=== PATIENT | male | born 1950 | race African-American/Black ===

== ENCOUNTER 2024-02-14 13:33 | Emergency (ER) | payer MEDICARE, SELFPAY ==
[2024-02-14] VITALS (12 sets, daily range): BP systolic 117–139; BP diastolic 70–92; PULSE 91–103; RESP 14–26; TEMP 36.6; O2SAT 94–96; BMI 22.0
--- NOTE | 2024-02-14 13:56 | DI.RAD.S_ITS ---
PROCEDURE: XR CHEST 1V INDICATIONS: Shortness of breath TECHNIQUE: One view of the chest was acquired. COMPARISON: None. FINDINGS: Surgical changes and devices: None. Lungs and pleura: Lungs right basilar atelectasis and/or hypoinflated. No pleural effusions or pneumothorax. Mediastinum: Mediastinal contours appear normal. Heart size is normal. Bones and chest wall: No suspicious bony lesions. Overlying soft tissues appear unremarkable. IMPRESSION: Right basilar atelectasis. If there is significant concern for an infectious process formal PA and lateral chest radiographs are recommended. Dictated by: Rehana Turner M.D. on 02/14/2024 at 13:50 Approved by: Rehana Turner M.D. on 02/14/2024 at 13:52
--- NOTE | 2024-02-14 13:57 | EKG_ITS ---
[id number] [address] Test Date: 2024-02-14 Pat Name: Bobby Marion Department: Room: Gender: Male Solutions Analyst: : 1950 Requested By: Order Number: [id number] Reading MD: Cruz Durbin Measurements Intervals Buckner Rate: 100 P: 40 DC: 168 QRS: 12 QRSD: 70 T: 39 QT: 362 QTc: 466 Interpretive Statements Normal sinus rhythm Nonspecific ST abnormality Electronically Signed On 02-16-2024 19:41:37 PST by Cruz Durbin
[2024-02-14 14:21] LABS: Add Manual Diff / Slide Review NO; Basophils Absolute Auto 0 /uL (0-100); Basophils Percent Auto 0.3 % (0-2); Eosinophils Absolute Auto 0 /uL (0-450); Eosinophils Percent Auto 0.1 % (2-4); Hematocrit 33.4 % (41-53); Hemoglobin 10.6 g/dL (13.5-17.5); Lymphocytes Absolute Auto 1400 /uL (1100-4500); Lymphocytes Percent Auto 9.5 % (25-40); Mean Corpuscular HGB Conc 31.8 % (30-36); Mean Corpuscular Hemoglobin 26.3 PG (26-34); Mean Corpuscular Volume 82.7 fL (80-100); Monocytes Absolute Auto 1400 /uL (0-900); Monocytes Percent Auto 9.7 % (3-14); Neutrophils Absolute Auto 11900 /uL (1500-7000); Neutrophils Percent Auto 80.4 % (50-75); Platelet Count 467 X10^3/uL (150-400); Red Blood Cell Count 4.04 X10^6/uL (4.5-5.9); Red Cell Distribution Width 16.3 % (11.6-14.8); White Blood Cell Count 14.8 X10^3/uL (4.5-11.0)
[2024-02-14 14:26] LABS: INR 1.5 (0.9-1.3); Prothrombin Time 16.5 SECONDS (9.4-12.5)
[2024-02-14 14:32] LABS: Alanine Aminotransferase 88 IU/L (<50); Albumin 3.6 g/dL (3.5-5.0); Albumin Globulin Ratio 0.9 (1.0-2.8); Alkaline Phosphatase 608 U/L (38-126); Aspartate Aminotransferase 141 IU/L (17-59); BUN Creatinine Ratio 24.4 (6-22); Bilirubin Total 1.5 mg/dL (0.2-1.3); Blood Urea Nitrogen 30 mg/dL (9-20); Calcium 9.6 mg/dL (8.4-10.2); Carbon Dioxide 24 mmol/L (22-32); Chloride 99 mmol/L (98-107); Estimated Glomerular Filt Rate > 60 mL/min (>60); Globulin 4.1 g/dL (1.7-4.1); Glucose 122 mg/dL (80-110); HEMOLYSIS < 15 (0-50); Lactate (Lactic Acid) 2.6 mmol/L (0.7-2.1); Lipase 227 U/L (23-300); Potassium 4.1 mmol/L (3.4-5.1); Sodium 133 mmol/L (137-145); Total Protein 7.7 g/dL (6.3-8.2)
[2024-02-14 14:44] LABS: NT-proBNP (BNP-Adult 18+) 171 pg/mL (<125); Troponin I < 0.012 ng/mL (0.01-0.034)
--- NOTE | 2024-02-14 14:44 | ED_ITS ---
HPI - Abdominal Pain General Chief Complaint: Abdominal Pain Stated Complaint: lower rt quad px, blood in stool Time Seen by Provider: 02/14/24 14:42 Source: patient and family Mode of arrival: Family Vehicle History of Present Illness HPI narrative: Patient is a 73-year-old male history of hypertension presenting today with variety of symptoms. He has been having some ongoing abdominal pain more in the right side. It has been ongoing for couple of months. It has not any worse. He did a home Hemoccult test which he says was positive for blood. He denies any bloody bowel movements or black stool. He says he has a decrease in appetite he is probably lost some weight. He also noticed significant shortness of breath with any sort of exertion. He has had increased sedentary with the abdominal pain. Related Data Previous Rx's Medication Instructions Recorded hydrocodone 5 mg-acetaminophen 325 1 tab PO Q6H PRN pain #15 tabs 02/14/24 mg tablet Patient History Social History Smoking Status: Never smoker Smoking Status: Never smoker Exam Initial Vital Signs Initial Vital Signs: Vital Signs Temperature 97.9 F 02/14/24 13:40 Pulse Rate 103 H 02/14/24 13:40 Respiratory Rate 14 02/14/24 13:40 Blood Pressure 129/72 02/14/24 13:40 Pulse Oximetry 95 02/14/24 13:40 Oxygen Delivery Method Room Air 02/14/24 13:40 GENERAL: Thin frail 73-year-old male and in [no acute] distress. HEENT: Head atraumatic,EOMI, pupils reactive, face symmetric, [moist] mucous membranes CARDIOVASCULAR: Regular rate and rhythm without murmurs, rubs or gallops. RESPIRATORY: Breath sounds equal bilaterally, no wheezes rales or rhonchi. ABDOMEN: Soft, mild tenderness right side no significant distention [RECTAL:] [Hemoccult-positive, no hemorrhoids, nontender] : No CVA tenderness EXTREMITIES: Normal range of motion, no clubbing or edema. Neurovascularly intact NEUROLOGICAL: Alert and oriented x4.Normal gait and speech. SKIN: Warm, dry, no laceration, no petechiae, no rashes or lesions. Course Orders Ordered: ED Orders 02/14/24 13:54 EKG-12 Lead Stat 02/14/24 13:56 XR chest 1V Stat Measure peak expiratory flow ONCE RT Consult Eval and Treat NOW 02/14/24 14:00 CEA [Carcinoembryonic Antigen] Stat Complete Blood Count AUTO DIFF Stat Comprehensive Metabolic Panel Stat Lactate (Lactic Acid) Stat Lipase Stat NT-proBNP (BNP-Adult 18+) Stat Prothrombin Time INR Stat Troponin I Stat 02/14/24 14:55 CT abdomen pelvis w con Stat CT angio chest PE protocol Stat 02/14/24 15:20 Blood Culture Stat 02/14/24 15:40 Urine Microscopic Stat 02/14/24 17:50 Alpha Fetoprotein Stat Discontinued Medications Hydrocodone Bitart/Acetaminophen (Hydrocodone/Acet 5/325 Prepack) 1 bottle MISC DIRECTED ONE Stop: 02/14/24 18:11 Last Admin: 02/14/24 18:14 Dose: 1 bottle Documented By: TANJA Ondansetron HCl (Ondansetron 4 Mg/2 Ml Inj) 4 mg IV NOW PRN PRN Reason: Nausea And Vomiting Ondansetron HCl (Ondansetron 4 Mg Odt) 4 mg PO NOW PRN PRN Reason: Nausea And Vomiting Vital Signs Vital signs: Vital Signs - 8 hr 02/14/24 13:40 02/14/24 13:48 02/14/24 14:00 Temperature 97.9 F Pulse Rate 103 H 103 H 99 H Respiratory Rate 14 25 H Blood Pressure 129/72 Pulse Oximetry 95 95 95 Oxygen Delivery Method Room Air Room Air 02/14/24 14:30 02/14/24 14:30 02/14/24 15:00 Temperature Pulse Rate 97 H 98 H Respiratory Rate 26 H 22 Blood Pressure 117/70 Pulse Oximetry 95 95 Oxygen Delivery Method 02/14/24 15:00 02/14/24 15:05 02/14/24 15:44 Temperature Pulse Rate 96 H 94 H Respiratory Rate 16 25 H Blood Pressure 126/79 Pulse Oximetry 95 95 Oxygen Delivery Method Room Air 02/14/24 15:45 02/14/24 15:45 02/14/24 16:00 Temperature Pulse Rate 93 H 93 H Respiratory Rate 22 18 Blood Pressure 135/79 Pulse Oximetry 95 96 Oxygen Delivery Method 02/14/24 16:00 02/14/24 16:30 02/14/24 16:30 Temperature Pulse Rate 91 H Respiratory Rate 18 Blood Pressure 122/76 121/77 Pulse Oximetry 96 Oxygen Delivery Method Room Air 02/14/24 17:00 02/14/24 17:00 02/14/24 17:30 Temperature Pulse Rate 97 H 93 H Respiratory Rate 23 19 Blood Pressure 139/92 H Pulse Oximetry 96 94 Oxygen Delivery Method Room Air 02/14/24 17:30 Temperature Pulse Rate Respiratory Rate Blood Pressure 124/80 Pulse Oximetry Oxygen Delivery Method MDM - Abdominal Pain Lab Data 02/14/24 14:00 02/14/24 14:00 Labs: Lab Results 02/14/24 02/14/24 02/14/24 Range/Units 14:00 14:00 14:00 WBC 14.8 H (4.5-11.0) X10^3/uL RBC 4.04 L (4.5-5.9) X10^6/uL Hgb 10.6 L (13.5-17.5) g/dL Hct 33.4 L (41-53) % MCV 82.7 (80-100) fL MCH 26.3 (26-34) PG MCHC 31.8 (30-36) % RDW 16.3 H (11.6-14.8) % Plt Count 467 H (150-400) X10^3/uL Neut % (Auto) 80.4 H (50-75) % Lymph % (Auto) 9.5 L (25-40) % Dubois % (Auto) 9.7 (3-14) % Eos % (Auto) 0.1 L (2-4) % Baso % (Auto) 0.3 (0-2) % Neut # (Auto) 10973 H (5335-5594) /uL Lymph # (Auto) 1400 (2907-2569) /uL Dubois # (Auto) 1400 H (0-900) /uL Eos # (Auto) 0 (0-450) /uL Baso # (Auto) 0 (0-100) /uL PT 16.5 H (9.4-12.5) SECONDS INR 1.5 H (0.9-1.3) Sodium 133 L Cancelled (137-145) mmol/L Potassium 4.1 Cancelled (3.4-5.1) mmol/L Chloride 99 (98-107) mmol/L Carbon Dioxide (22-32) mmol/L BUN (9-20) mg/dL Creatinine (0.66-1.25) mg/dL Estimated GFR (>60) mL/min BUN/Creatinine Ratio (6-22) Glucose (80-110) mg/dL Lactate (0.7-2.1) mmol/L Calcium (8.4-10.2) mg/dL Total Bilirubin (0.2-1.3) mg/dL AST (17-59) IU/L ALT (<50) IU/L Alkaline Phosphatase (38-126) U/L Troponin I (0.01-0.034) ng/mL NT-Pro-B Natriuret Pep (<125) pg/mL Total Protein (6.3-8.2) g/dL Albumin (3.5-5.0) g/dL Globulin (1.7-4.1) g/dL Albumin/Globulin Ratio (1.0-2.8) Lipase (23-300) U/L Urine RBC (0-5/HPF) Urine WBC (0-5/HPF) Ur Squamous Epith Cells (0-5/HPF) Urine Bacteria (None) Hyaline Casts (None) Ur Culture Indicated? Vol Urine Centrifuged 02/14/24 02/14/24 02/14/24 Range/Units 14:00 14:00 14:00 WBC (4.5-11.0) X10^3/uL RBC (4.5-5.9) X10^6/uL Hgb (13.5-17.5) g/dL Hct (41-53) % MCV (80-100) fL MCH (26-34) PG MCHC (30-36) % RDW (11.6-14.8) % Plt Count (150-400) X10^3/uL Neut % (Auto) (50-75) % Lymph % (Auto) (25-40) % Dubois % (Auto) (3-14) % Eos % (Auto) (2-4) % Baso % (Auto) (0-2) % Neut # (Auto) (4419-1736) /uL Lymph # (Auto) (1741-7871) /uL Dubois # (Auto) (0-900) /uL Eos # (Auto) (0-450) /uL Baso # (Auto) (0-100) /uL PT (9.4-12.5) SECONDS INR (0.9-1.3) Sodium (137-145) mmol/L Potassium (3.4-5.1) mmol/L Chloride Cancelled (98-107) mmol/L Carbon Dioxide 24 Cancelled (22-32) mmol/L BUN 30 H Cancelled (9-20) mg/dL Creatinine 1.23 (0.66-1.25) mg/dL Estimated GFR (>60) mL/min BUN/Creatinine Ratio (6-22) Glucose (80-110) mg/dL Lactate (0.7-2.1) mmol/L Calcium (8.4-10.2) mg/dL Total Bilirubin (0.2-1.3) mg/dL AST (17-59) IU/L ALT (<50) IU/L Alkaline Phosphatase (38-126) U/L Troponin I (0.01-0.034) ng/mL NT-Pro-B Natriuret Pep (<125) pg/mL Total Protein (6.3-8.2) g/dL Albumin (3.5-5.0) g/dL Globulin (1.7-4.1) g/dL Albumin/Globulin Ratio (1.0-2.8) Lipase (23-300) U/L Urine RBC (0-5/HPF) Urine WBC (0-5/HPF) Ur Squamous Epith Cells (0-5/HPF) Urine Bacteria (None) Hyaline Casts (None) Ur Culture Indicated? Vol Urine Centrifuged 02/14/24 02/14/24 02/14/24 Range/Units 14:00 14:00 14:00 WBC (4.5-11.0) X10^3/uL RBC (4.5-5.9) X10^6/uL Hgb (13.5-17.5) g/dL Hct (41-53) % MCV (80-100) fL MCH (26-34) PG MCHC (30-36) % RDW (11.6-14.8) % Plt Count (150-400) X10^3/uL Neut % (Auto) (50-75) % Lymph % (Auto) (25-40) % Dubois % (Auto) (3-14) % Eos % (Auto) (2-4) % Baso % (Auto) (0-2) % Neut # (Auto) (2072-9077) /uL Lymph # (Auto) (1600-6272) /uL Dubois # (Auto) (0-900) /uL Eos # (Auto) (0-450) /uL Baso # (Auto) (0-100) /uL PT (9.4-12.5) SECONDS INR (0.9-1.3) Sodium (137-145) mmol/L Potassium (3.4-5.1) mmol/L Chloride (98-107) mmol/L Carbon Dioxide (22-32) mmol/L BUN (9-20) mg/dL Creatinine Cancelled (0.66-1.25) mg/dL Estimated GFR > 60 Cancelled (>60) mL/min BUN/Creatinine Ratio 24.4 H Cancelled (6-22) Glucose 122 H (80-110) mg/dL Lactate (0.7-2.1) mmol/L Calcium (8.4-10.2) mg/dL Total Bilirubin (0.2-1.3) mg/dL AST (17-59) IU/L ALT (<50) IU/L Alkaline Phosphatase (38-126) U/L Troponin I (0.01-0.034) ng/mL NT-Pro-B Natriuret Pep (<125) pg/mL Total Protein (6.3-8.2) g/dL Albumin (3.5-5.0) g/dL Globulin (1.7-4.1) g/dL Albumin/Globulin Ratio (1.0-2.8) Lipase (23-300) U/L Urine RBC (0-5/HPF) Urine WBC (0-5/HPF) Ur Squamous Epith Cells (0-5/HPF) Urine Bacteria (None) Hyaline Casts (None) Ur Culture Indicated? Vol Urine Centrifuged 02/14/24 02/14/24 02/14/24 Range/Units 14:00 14:00 14:00 WBC (4.5-11.0) X10^3/uL RBC (4.5-5.9) X10^6/uL Hgb (13.5-17.5) g/dL Hct (41-53) % MCV (80-100) fL MCH (26-34) PG MCHC (30-36) % RDW (11.6-14.8) % Plt Count (150-400) X10^3/uL Neut % (Auto) (50-75) % Lymph % (Auto) (25-40) % Dubois % (Auto) (3-14) % Eos % (Auto) (2-4) % Baso % (Auto) (0-2) % Neut # (Auto) (9799-9931) /uL Lymph # (Auto) (4838-0993) /uL Dubois # (Auto) (0-900) /uL Eos # (Auto) (0-450) /uL Baso # (Auto) (0-100) /uL PT (9.4-12.5) SECONDS INR (0.9-1.3) Sodium (137-145) mmol/L Potassium (3.4-5.1) mmol/L Chloride (98-107) mmol/L Carbon Dioxide (22-32) mmol/L BUN (9-20) mg/dL Creatinine (0.66-1.25) mg/dL Estimated GFR (>60) mL/min BUN/Creatinine Ratio (6-22) Glucose Cancelled (80-110) mg/dL Lactate 2.6 H (0.7-2.1) mmol/L Calcium 9.6 Cancelled (8.4-10.2) mg/dL Total Bilirubin 1.5 H Cancelled (0.2-1.3) mg/dL AST 141 H (17-59) IU/L ALT (<50) IU/L Alkaline Phosphatase (38-126) U/L Troponin I (0.01-0.034) ng/mL NT-Pro-B Natriuret Pep (<125) pg/mL Total Protein (6.3-8.2) g/dL Albumin (3.5-5.0) g/dL Globulin (1.7-4.1) g/dL Albumin/Globulin Ratio (1.0-2.8) Lipase (23-300) U/L Urine RBC (0-5/HPF) Urine WBC (0-5/HPF) Ur Squamous Epith Cells (0-5/HPF) Urine Bacteria (None) Hyaline Casts (None) Ur Culture Indicated? Vol Urine Centrifuged 02/14/24 02/14/24 02/14/24 Range/Units 14:00 14:00 14:00 WBC (4.5-11.0) X10^3/uL RBC (4.5-5.9) X10^6/uL Hgb (13.5-17.5) g/dL Hct (41-53) % MCV (80-100) fL MCH (26-34) PG MCHC (30-36) % RDW (11.6-14.8) % Plt Count (150-400) X10^3/uL Neut % (Auto) (50-75) % Lymph % (Auto) (25-40) % Dubois % (Auto) (3-14) % Eos % (Auto) (2-4) % Baso % (Auto) (0-2) % Neut # (Auto) (5085-2761) /uL Lymph # (Auto) (4667-8858) /uL Dubois # (Auto) (0-900) /uL Eos # (Auto) (0-450) /uL Baso # (Auto) (0-100) /uL PT (9.4-12.5) SECONDS INR (0.9-1.3) Sodium (137-145) mmol/L Potassium (3.4-5.1) mmol/L Chloride (98-107) mmol/L Carbon Dioxide (22-32) mmol/L BUN (9-20) mg/dL Creatinine (0.66-1.25) mg/dL Estimated GFR (>60) mL/min BUN/Creatinine Ratio (6-22) Glucose (80-110) mg/dL Lactate (0.7-2.1) mmol/L Calcium (8.4-10.2) mg/dL Total Bilirubin (0.2-1.3) mg/dL AST Cancelled (17-59) IU/L ALT 88 H Cancelled (<50) IU/L Alkaline Phosphatase 608 H Cancelled (38-126) U/L Troponin I < 0.012 (0.01-0.034) ng/mL NT-Pro-B Natriuret Pep 171 H (<125) pg/mL Total Protein 7.7 (6.3-8.2) g/dL Albumin (3.5-5.0) g/dL Globulin (1.7-4.1) g/dL Albumin/Globulin Ratio (1.0-2.8) Lipase (23-300) U/L Urine RBC (0-5/HPF) Urine WBC (0-5/HPF) Ur Squamous Epith Cells (0-5/HPF) Urine Bacteria (None) Hyaline Casts (None) Ur Culture Indicated? Vol Urine Centrifuged 02/14/24 02/14/24 02/14/24 Range/Units 14:00 14:00 14:00 WBC (4.5-11.0) X10^3/uL RBC (4.5-5.9) X10^6/uL Hgb (13.5-17.5) g/dL Hct (41-53) % MCV (80-100) fL MCH (26-34) PG MCHC (30-36) % RDW (11.6-14.8) % Plt Count (150-400) X10^3/uL Neut % (Auto) (50-75) % Lymph % (Auto) (25-40) % Dubois % (Auto) (3-14) % Eos % (Auto) (2-4) % Baso % (Auto) (0-2) % Neut # (Auto) (3113-6566) /uL Lymph # (Auto) (4118-6260) /uL Dubois # (Auto) (0-900) /uL Eos # (Auto) (0-450) /uL Baso # (Auto) (0-100) /uL PT (9.4-12.5) SECONDS INR (0.9-1.3) Sodium (137-145) mmol/L Potassium (3.4-5.1) mmol/L Chloride (98-107) mmol/L Carbon Dioxide (22-32) mmol/L BUN (9-20) mg/dL Creatinine (0.66-1.25) mg/dL Estimated GFR (>60) mL/min BUN/Creatinine Ratio (6-22) Glucose (80-110) mg/dL Lactate (0.7-2.1) mmol/L Calcium (8.4-10.2) mg/dL Total Bilirubin (0.2-1.3) mg/dL AST (17-59) IU/L ALT (<50) IU/L Alkaline Phosphatase (38-126) U/L Troponin I (0.01-0.034) ng/mL NT-Pro-B Natriuret Pep (<125) pg/mL Total Protein Cancelled (6.3-8.2) g/dL Albumin 3.6 Cancelled (3.5-5.0) g/dL Globulin 4.1 Cancelled (1.7-4.1) g/dL Albumin/Globulin Ratio 0.9 L (1.0-2.8) Lipase (23-300) U/L Urine RBC (0-5/HPF) Urine WBC (0-5/HPF) Ur Squamous Epith Cells (0-5/HPF) Urine Bacteria (None) Hyaline Casts (None) Ur Culture Indicated? Vol Urine Centrifuged 02/14/24 02/14/24 02/14/24 Range/Units 14:00 15:40 16:44 WBC (4.5-11.0) X10^3/uL RBC (4.5-5.9) X10^6/uL Hgb (13.5-17.5) g/dL Hct (41-53) % MCV (80-100) fL MCH (26-34) PG MCHC (30-36) % RDW (11.6-14.8) % Plt Count (150-400) X10^3/uL Neut % (Auto) (50-75) % Lymph % (Auto) (25-40) % Dubois % (Auto) (3-14) % Eos % (Auto) (2-4) % Baso % (Auto) (0-2) % Neut # (Auto) (1873-2124) /uL Lymph # (Auto) (4208-6642) /uL Dubois # (Auto) (0-900) /uL Eos # (Auto) (0-450) /uL Baso # (Auto) (0-100) /uL PT (9.4-12.5) SECONDS INR (0.9-1.3) Sodium (137-145) mmol/L Potassium (3.4-5.1) mmol/L Chloride (98-107) mmol/L Carbon Dioxide (22-32) mmol/L BUN (9-20) mg/dL Creatinine (0.66-1.25) mg/dL Estimated GFR (>60) mL/min BUN/Creatinine Ratio (6-22) Glucose (80-110) mg/dL Lactate 1.4 (0.7-2.1) mmol/L Calcium (8.4-10.2) mg/dL Total Bilirubin (0.2-1.3) mg/dL AST (17-59) IU/L ALT (<50) IU/L Alkaline Phosphatase (38-126) U/L Troponin I (0.01-0.034) ng/mL NT-Pro-B Natriuret Pep (<125) pg/mL Total Protein (6.3-8.2) g/dL Albumin (3.5-5.0) g/dL Globulin (1.7-4.1) g/dL Albumin/Globulin Ratio Cancelled (1.0-2.8) Lipase 227 (23-300) U/L Urine RBC None seen (0-5/HPF) Urine WBC None seen (0-5/HPF) Ur Squamous Epith Cells None seen (0-5/HPF) Urine Bacteria None seen (None) Hyaline Casts 0-1/lpf (None) Ur Culture Indicated? Cult not indicated Vol Urine Centrifuged 10ml (spun) Point of care testing: Urine Dip Bedside Urine Glucose Negative Bedside Urine Bilirubin - Negative Bedside Urine Ketone - Negative Urine Specific Alpine 1.010 Bedside Urine Occult Blood - Negative Bedside Urine pH 6.0 Bedside Urine Protein + 30 Bedside Urine Urobilinogen - Negative Bedside Urine Nitrite - Negative Bedside Urine Leukocytes - Negative Esterase Imaging Data CT scan - chest: Radiologist's Impression: PROCEDURE: CT ANGIO CHEST PE PROTOCOL INDICATIONS: short of breath TECHNIQUE: After the administration of intravenous contrast, 2 mm thick sections acquired from the pulmonary apices to the posterior costophrenic angles. 3-dimensional maximum intensity projection (MIP) coronal and sagittal reformats were then acquired through the thorax. For radiation dose reduction, the following was used: automated exposure control, adjustment of mA and/or kV according to patient size. COMPARISON: None. FINDINGS: Image quality: Diagnostic. Pulmonary arteries: Pulmonary arteries are normal in size, and demonstrate no intraluminal filling defects to suggest central pulmonary embolism. Lower Neck: No enlarged lymph nodes. Thyroid: No thyroid nodules which require sonographic follow up, per consensus guidelines. Axillae: No enlarged lymph nodes. Chest Wall: Unremarkable. Bones: Unremarkable. Specifically, there are no aggressive osseous lesions. Lungs and Pleura: There is a small right pleural effusion with right lower lobe atelectasis. Lungs are otherwise clear. There is no suspicious pulmonary nodule. Heart: Heart size is normal. No pericardial effusion. Thoracic Vessels: No aortic aneurysm. Mediastinum and Shannon: No enlarged lymph nodes. Esophagus: No wall thickening. No hiatal hernia. Upper Abdomen: See same day abdominal CT report. IMPRESSION: No pulmonary embolus. Small right pleural effusion and right lower lobe atelectasis. Dictated by: Rehana Turner M.D. on 02/14/2024 at 15:02 CT scan - abdomen/pelvis: Radiologist's Impression: PROCEDURE: CT ABDOMEN PELVIS W CON INDICATIONS: ab pain, blood in stool elevated liver enzymes TECHNIQUE: After the administration of intravenous contrast, axial sections acquired from the lung bases to the pubic symphysis. Coronal and sagittal reformats were performed. For radiation dose reduction, the following was used: automated exposure control, adjustment of mA and/or kV according to patient size. COMPARISON: None. FINDINGS: Image quality: Diagnostic. Lower Chest: No significant findings. ABDOMEN: Liver: There are too numerous to count heterogeneous masses throughout the liver which encompasses nearly the entirety of the hepatic parenchyma. If you have the appearance of simple cysts but the majority appear to be solid masses with heterogeneous attenuation. Gallbladder: Decompressed with tiny layering stones versus sludge. No pericholecystic fluid. Biliary ducts: No biliary dilation. Pancreas: No ductal dilation. Spleen: Size is within normal limits. Adrenal Glands: No adrenal nodules. Kidneys and Ureters: No hydronephrosis. Numerous cysts, the largest of which measures approximately 8 cm on the left. A subcentimeter lesion at the left upper pole demonstrates peripheral calcification. Two Stomach and Bowel: Bowels are normal caliber without obstruction. There is an area of asymmetric wall thickening at the cecum which measures approximately 4.1 by 3.3 x 3.5 cm. Peritoneum: No abnormal intraperitoneal fluid. No free air. Ventral wall: No significant ventral hernia. Abdominal Nodes: No retroperitoneal or mesenteric adenopathy by size criteria. Vessels: Aorta and inferior vena cava are normal in size. PELVIS: Pelvic Organs: Unremarkable. Bladder: No bladder wall thickening, accounting for underdistention. Pelvic Nodes: No enlarged lymph nodes. Miscellaneous: No inguinal hernias are seen. Bones: No aggressive osseous abnormality. There is a heterogeneous lesion of the L1 vertebral body which is predominantly hyperattenuating with areas of adjacent hypoattenuation. A similar but much smaller lesion is seen in the right T9 transverse process. IMPRESSION: Cecal mass and hepatic findings concerning for metastatic colon cancer. Colonoscopy is recommended for direct visualization. Dictated by: Rehana Turner M.D. on 02/14/2024 at 15 ECG Data Attestation: I personally reviewed and interpreted this ECG as follows: Interpretation: Normal sinus rhythm rate 100 MT interval 168 QRS 70 QTC 466 MDM Narrative Medical decision making narrative: MDM CC: Abdominal Complicating co-morbidities: Hypertension Data collected from: Brother and patient Medical records reviewed: No priors to compare Differential considered: Pulmonary embolism Exam documented above, pertinent findings include: Patient looks weak thin mildly tender on right side of abdomen, breath sounds clear Lab Test results independently reviewed as above. Pertinent findings: WBC 14.8 hemoglobin 10.6 hematocrit 33.4 platelets 467 INR 1.5 PT 16.5 Sodium 133 potassium 4.1 chloride 99 carbon dioxide 24 BUN 30 creatinine 1.23 Lactate 2.6 with repeat 1 point Bili 1.5, AST 141 ALT 88 alk-phos 608 lipase 227 Troponin negative Independently reviewed EKG as above Imaging studies independently reviewed: CT chest no pulmonary embolism small right pleural effusion CT abdomen shows cecal mass with hepatic metastasis Chest x-ray right basilar atelectasis Consultations: 1710 DR. Acosta oncology at [facility], dated symptoms test results will need referral for Oncology 1830 Dr. Hwang from [facility] updated patient's symptoms test results needs referral to Oncology. Dr. Schwarz is the PCP he will send a message. Treatments: None Re-evaluations: Remained stable not requiring anything for pain Discussion: 73-year-old male history of hypertension presenting today with ongoing abdominal pain some blood in his rectum and decrease in appetite. He is also having some mild shortness of breath. Certainly concerning for colon cancer. CT does confirm a cecal mass with liver metastasis. CT angio ruled out pulmonary embolism. Discussion with Oncology who is aware of patient, will need referral. I have spoken with on-call PCP for this as well I have updated patient in his brother with test results. He has given a disc in the CT report. All questions have been answered. I encourage him not to get constipated. He is requesting something for pain to help him sleep at night. He has given a prepack of Harrold along with prescription as well. All questions answered to the best of my ability Discharge Plan Departure Patient Disposition: Home Clinical Impression: Colonic mass Instructions: DI for Colorectal Cancer Activity Restrictions/Additional Instructions: *You have been diagnosed with colon mass *What to do: At this time there is certainly concern for metastatic colon cancer. I have called and spoken to Dr. Acosta *Continue to take medications as directed Harrold 1 tablet every 6 hours if needed for severe pain MiraLax once daily if needed for constipation Dulcolax 1-2 times daily as needed for constipation Sennakot take as directed (found over the counter) *Follow up with your primary care provider in 2-3 days or call [phone] *Return to ER if you should have increasing abdominal pain bloody stools nausea vomiting shortness of [or] any new, worsening or concerning symptoms CONTROLLED SUBSTANCE DISCHARGE (Narcotoic/benzodiazepine/Flexeril/Phenergan) 1. You have been prescribed narcotic medications, it does have acetaminophen/Tylenol/paracetamol in it, DO NOT TAKE MORE THAN 4,00mg in 24 hours of Tylenol. TRAMADOL DOES NOT CONTAIN TYLENOL 2. Please understand that we cannot provide further refills of narcotics, benzodiazepines or controlled substances through the ED and her pain management will need to be through your provider. 3. While on these medications you cannot drive or operate heavy machinery. 4. You cannot sign legal documents or perform any duties such as this. 5. As long as you're taking opiate pain medications he should also be taking a stool softener such as Colace, Dulcolax, MiraLAX or prune juice, to help avoid constipation. Prescriptions: New hydrocodone-acetaminophen 5-325 mg tablet 1 tab PO Q6H PRN (Reason: pain) Qty: 15 0RF Referrals: Miscellaneous,Doctor, [Primary Care Provider] - Stand Alone Forms: Patient Portal/API/Survey
--- NOTE | 2024-02-14 14:55 | DI.CT.S_ITS ---
PROCEDURE: CT ABDOMEN PELVIS W CON INDICATIONS: ab pain, blood in stool elevated liver enzymes TECHNIQUE: After the administration of intravenous contrast, axial sections acquired from the lung bases to the pubic symphysis. Coronal and sagittal reformats were performed. For radiation dose reduction, the following was used: automated exposure control, adjustment of mA and/or kV according to patient size. COMPARISON: None. FINDINGS: Image quality: Diagnostic. Lower Chest: No significant findings. ABDOMEN: Liver: There are too numerous to count heterogeneous masses throughout the liver which encompasses nearly the entirety of the hepatic parenchyma. If you have the appearance of simple cysts but the majority appear to be solid masses with heterogeneous attenuation. Gallbladder: Decompressed with tiny layering stones versus sludge. No pericholecystic fluid. Biliary ducts: No biliary dilation. Pancreas: No ductal dilation. Spleen: Size is within normal limits. Adrenal Glands: No adrenal nodules. Kidneys and Ureters: No hydronephrosis. Numerous cysts, the largest of which measures approximately 8 cm on the left. A subcentimeter lesion at the left upper pole demonstrates peripheral calcification. Two Stomach and Bowel: Bowels are normal caliber without obstruction. There is an area of asymmetric wall thickening at the cecum which measures approximately 4.1 by 3.3 x 3.5 cm. Peritoneum: No abnormal intraperitoneal fluid. No free air. Ventral wall: No significant ventral hernia. Abdominal Nodes: No retroperitoneal or mesenteric adenopathy by size criteria. Vessels: Aorta and inferior vena cava are normal in size. PELVIS: Pelvic Organs: Unremarkable. Bladder: No bladder wall thickening, accounting for underdistention. Pelvic Nodes: No enlarged lymph nodes. Miscellaneous: No inguinal hernias are seen. Bones: No aggressive osseous abnormality. There is a heterogeneous lesion of the L1 vertebral body which is predominantly hyperattenuating with areas of adjacent hypoattenuation. A similar but much smaller lesion is seen in the right T9 transverse process. IMPRESSION: Cecal mass and hepatic findings concerning for metastatic colon cancer. Colonoscopy is recommended for direct visualization. Dictated by: Rehana Turner M.D. on 02/14/2024 at 15:09 Approved by: Rehana Turner M.D. on 02/14/2024 at 15:24
--- NOTE | 2024-02-14 14:55 | DI.CT.S_ITS ---
PROCEDURE: CT ANGIO CHEST PE PROTOCOL INDICATIONS: short of breath TECHNIQUE: After the administration of intravenous contrast, 2 mm thick sections acquired from the pulmonary apices to the posterior costophrenic angles. 3-dimensional maximum intensity projection (MIP) coronal and sagittal reformats were then acquired through the thorax. For radiation dose reduction, the following was used: automated exposure control, adjustment of mA and/or kV according to patient size. COMPARISON: None. FINDINGS: Image quality: Diagnostic. Pulmonary arteries: Pulmonary arteries are normal in size, and demonstrate no intraluminal filling defects to suggest central pulmonary embolism. Lower Neck: No enlarged lymph nodes. Thyroid: No thyroid nodules which require sonographic follow up, per consensus guidelines. Axillae: No enlarged lymph nodes. Chest Wall: Unremarkable. Bones: Unremarkable. Specifically, there are no aggressive osseous lesions. Lungs and Pleura: There is a small right pleural effusion with right lower lobe atelectasis. Lungs are otherwise clear. There is no suspicious pulmonary nodule. Heart: Heart size is normal. No pericardial effusion. Thoracic Vessels: No aortic aneurysm. Mediastinum and [place]: No enlarged lymph nodes. Esophagus: No wall thickening. No hiatal hernia. Upper Abdomen: See same day abdominal CT report. IMPRESSION: No pulmonary embolus. Small right pleural effusion and right lower lobe atelectasis. Dictated by: Rehana Turner M.D. on 02/14/2024 at 15:02 Approved by: Rehana Turner M.D. on 02/14/2024 at 15:08
[2024-02-14 15:51] LABS: Reflexed Lactate in 2 Hours Y
[2024-02-14 17:05] LABS: Lactate 2HR (Lactic Acid Rflx) 1.4 mmol/L (0.7-2.1)
[2024-02-14 17:05] LABS: Urine Volume 10mL (spun)
[2024-02-14 17:06] LABS: Bacteria Urine None Seen; Culture Indicated Urine Cult Not Indicated; Hyaline Casts Urine 0-1/LPF; RBC Urine None Seen (0-5/HPF); Squamous Epithelial Cell Urine None Seen (0-5/HPF); WBC Urine None Seen (0-5/HPF)
--- NOTE | 2024-02-14 17:47 | PC.NURSE ---
repeat Lactate level
[2024-02-14] MEDS: HYDROCODONE/ACET 5/325 PREPACK 1 BOTTLE MISC (18:14)
[2024-02-16 07:12] LABS: Alpha Fetoprotein 1.8 ng/mL (0.0-8.4)
== END 2024-02-14 18:15 | disposition home or self-care (01) ==
PROVIDERS: Emergency Provider Emergency Medicine
DX: K63.89 Other specified diseases of intestine (principal); K62.5 Hemorrhage of anus and rectum; R06.02 Shortness of breath; K76.89 Other specified diseases of liver; I10 Essential (primary) hypertension
CPT/HCPCS: 36415; 71045; 71275; 74177; 80053; 81003; 81015; 82105; 82378; 83605; 83690; 83880; 84484; 85025; 85610; 87040; 93005; 94150; 99284; Q9967